=== PATIENT | male | born 1990 | race African-American/Black ===

== ENCOUNTER 2017-01-22 13:45 | Emergency (ER) | payer SELFPAY ==
[~2017-01-22] VITALS: Ht 172.7 cm; Wt 90.7 kg
--- NOTE | 2017-01-22 14:12 | ED.ADGEN ---
Past Medical History Past Medical History: No Pertinent History Alcohol Use: None Drug Use: Marijuana Adult General Chief Complaint Chief Complaint: SHORTNESS OF BREATH HPI HPI Patient is a 26 year old man, with no significant past medical history, who presents to the emergency department with complaint of worsening shortness of breath over the past month. Patient states that "I can't even sleep, it feels like I'm drowning, and it wakes meet up". He states that he was seen by another provider about a week ago, at that time he was prescribed an inhaler which he has been unable to fill due to cost concerns. He states that he is not experiencing any chest pain, does have chest tightness, and a feeling as though he cannot take a deep breath, states symptoms are worse with exertion and with lying flat. He denies any nausea or vomiting, any fevers or chills, any cough, any swelling extremities, any rashes, any travel or surgery, any history of PE or DVT in himself or family members. Has a family history of asthma. Patient states he does smoke cigarettes and marijuana. Patient is mildly tachycardic with a heart rate of 103, oxygen saturation is 9790% room air, respiratory rate is 20 and unlabored, blood pressure is 154/69. Review of Systems Review of Systems Constitutional: Denies fever or chills. [] Eyes: Denies change in visual acuity. [] HENT: Denies nasal congestion or sore throat. [] Respiratory: Denies cough, worsening shortness of breath over the past month. Cardiovascular: Chest tightness, no edema. GI: Denies abdominal pain, nausea, vomiting, bloody stools or diarrhea. [] : Denies dysuria. [] Musculoskeletal: Denies back pain or joint pain. [] Integument: Denies rash. [] Neurologic: Denies headache, focal weakness or sensory changes. [] Endocrine: Denies polyuria or polydipsia. [] Lymphatic: Denies swollen glands. [] Psychiatric: Denies depression or anxiety. [] Current Medications Current Medications Current Medications Medications (Trade) Dose Ordered Sig/Ivon Start Time Stop Time Status Last Admin Dose Admin Albuterol/ Ipratropium (Duoneb) 3 ml 1X ONCE 01/22/17 14:15 01/22/17 14:16 DC 01/22/17 14:13 3 ML Allergies Allergies Allergies Coded Allergies Type Severity Reaction Last Updated Verified No Known Drug Allergies 01/22/17 No Physical Exam Physical Exam Constitutional: Well developed, well nourished, no acute distress, non-toxic appearance. [] HENT: Normocephalic, atraumatic, bilateral external ears normal, oropharynx moist, no oral exudates, nose normal. [] Eyes: PERRLA, EOMI, conjunctiva normal, no discharge. [] Neck: Normal range of motion, no tenderness, supple, no stridor. [] Cardiovascular:Heart rate regular rhythm, no murmur, S1, S2, rubs or gallops. [] Lungs & Thorax: Bilateral breath sounds clear to auscultation, no wheezing, rhonchi, rales. No chest or crepitus or tenderness. [] Abdomen: Bowel sounds normal, soft, no tenderness, no rebound or rigidity, no guarding, no masses, no pulsatile masses. [] Skin: Warm, dry, no erythema, no rash. [] Back: No tenderness, no CVA tenderness. [] Extremities: No tenderness, no cyanosis, no clubbing, ROM intact, no edema. Negative Homans sign. Neurologic: Alert and oriented X 3, normal motor function, normal sensory function, no focal deficits noted. [] Psychologic: Affect normal, judgement normal, mood normal. [] Current Patient Data Vital Signs Vital Signs Date Time Temp Pulse Resp B/P (MAP) Pulse Ox O2 Delivery O2 Flow Rate FiO2 01/22/17 15:33 80 22 141/68 (92) 97 Room Air 01/22/17 13:58 98.5 98.5 Lab Values Laboratory Tests Test 01/22/17 14:22 01/22/17 14:43 White Blood Count 7.5 x10^3/uL (4.0-11.0) Red Blood Count 5.19 x10^6/uL (4.30-5.70) Hemoglobin 15.5 g/dL (13.0-17.5) Hematocrit 45.9 % (39.0-53.0) Mean Corpuscular Volume 88 fL (79-100) Mean Corpuscular Hemoglobin 30 pg (25-35) Mean Corpuscular Hemoglobin Concent 34 g/dL (31-37) Red Cell Distribution Width 13.0 % (11.5-14.5) Platelet Count 195 x10^3/uL (140-400) Neutrophils (%) (Auto) 70 % (31-73) Lymphocytes (%) (Auto) 21 % (24-48) L Monocytes (%) (Auto) 7 % (0-9) Eosinophils (%) (Auto) 1 % (0-3) Basophils (%) (Auto) 1 % (0-3) Neutrophils # (Auto) 5.3 x10^3uL (1.8-7.7) Lymphocytes # (Auto) 1.5 x10^3/uL (1.0-4.8) Monocytes # (Auto) 0.5 x10^3/uL (0.0-1.1) Eosinophils # (Auto) 0.1 x10^3/uL (0.0-0.7) Basophils # (Auto) 0.1 x10^3/uL (0.0-0.2) D-Dimer (Tiffany) < 0.27 ug/mlFEU Sodium Level 141 mmol/L (136-145) Potassium Level 4.4 mmol/L (3.5-5.1) Chloride Level 104 mmol/L (98-107) Carbon Dioxide Level 28 mmol/L (21-32) Anion Gap 9 (6-14) Blood Urea Nitrogen 14 mg/dL (8-26) Creatinine 0.8 mg/dL (0.7-1.3) Estimated GFR (Cockcroft-Gault) 116.0 BUN/Creatinine Ratio 18 (6-20) Glucose Level 102 mg/dL (70-99) H Calcium Level 8.5 mg/dL (8.5-10.1) Total Bilirubin 0.2 mg/dL (0.2-1.0) Aspartate Amino Transferase (AST) 21 U/L (15-37) Alanine Aminotransferase (ALT) 44 U/L (16-63) Alkaline Phosphatase 98 U/L (46-116) Troponin I Quantitative < 0.017 ng/mL (0.000-0.055) CW-Xky-Q-Type Natriuretic Peptide 22 pg/mL (0-124) Total Protein 7.6 g/dL (6.4-8.2) Albumin 3.7 g/dL (3.4-5.0) Albumin/Globulin Ratio 0.9 (1.0-1.7) L Urine Opiates Screen Neg (NEG) Urine Methadone Screen Neg (NEG) Urine Barbiturates Neg (NEG) Urine Phencyclidine Screen Neg (NEG) Urine Amphetamine/Methamphetamine Neg (NEG) Urine Benzodiazepines Screen Neg (NEG) Urine Cocaine Screen Neg (NEG) Urine Cannabinoids Screen Pos (NEG) Urine Ethyl Alcohol Neg (NEG) Laboratory Tests 01/22/17 14:22 Laboratory Tests 01/22/17 14:22 EKG EKG EC: Sinus rhythm, heart rate 91 bpm, upright axis, QTC of 420, CA of 156 , QRS of 84, no ST elevations or depressions, no evidence of acute ST abnormalities. As interpreted by me. Radiology/Procedures Radiology/Procedures [][facility] [address] [place], [place] [id number] IMAGING REPORT Signed PATIENT: RICO CHAWLA ACCOUNT: [id number] : 1990 LOCATION: ER AGE: 26 SEX: M EXAM STATUS: REG ER ORD. PHYSICIAN: DIGNA JOSHI DO REASON: SOB PROCEDURE: CHEST PA & LATERAL PA and lateral chest radiographs 01/22/2017. Clinical History: Shortness of breath. PA and lateral digital radiographs of the chest were obtained. No previous studies are available for comparison. The cardiac and mediastinal silhouettes are within normal limits in size and configuration. No pulmonary infiltrate is seen. No pleural effusion or pneumothorax is noted. The osseous structures are grossly intact. Impression: No radiographic evidence of active cardiopulmonary disease. DICTATED and SIGNED BY: MIKEY PAUL MD DATE: 01/22/17 1515 CC: DIGNA JOSHI DO; NO PCP ~ Course & Med Decision Making Course & Med Decision Making Pertinent Labs and Imaging studies reviewed. (See chart for details) Patient well-appearing, oxygen saturation at rest is 97 %, lungs are slightly diminished at bases, no other acute concerning findings identified and examination or history. ECG is also unremarkable, chest x-rays unremarkable, patient received DuoNeb in the ED, states he is feeling much better after DuoNeb administered. Other laboratory studies and evaluation not reveal a concerning findings. Patient received an ambulatory trial in the emergency department, heart rate is now in the 80s, oxygen saturation between 96-98%, respiratory rate remains unlabored. I discussed with patient that he is experiencing symptoms consistent with reactive airway disease, or asthma, and to use the albuterol inhaler as prescribed with the physician would be beneficial, as would discontinuing smoking both marijuana and cigarettes. Also discussed with the patient that he requires establishing a primary care provider for additional evaluation and follow-up if symptoms persist. We did discuss concerning symptoms that would prompt return, was discharged with a second prescription for an albuterol inhaler, with clear and detailed return instructions and precautions as stated above. Dragon Disclaimer Dragon Disclaimer This electronic medical record was generated, in whole or in part, using a voice recognition dictation system. Departure Impression: Primary Impression: Shortness of breath Additional Impressions: Asthma Marijuana abuse Disposition: 01 HOME, SELF-CARE Condition: IMPROVED Scripts Albuterol Sulfate (Ventolin Hfa) 8 Gm Hfa.aer.ad 8 GM IH PRN Q4-6HRS Y for SHORTNESS OF BREATH, #1 INHALER Prov: DIGNA JOSHI DO 01/22/17 Problem Qualifiers DIGNA JOSHI DO Jan 22, 2017 14:12
[2017-01-22] MEDS ORDERED: IPRATRPIUM/ALBUTEROL 0.5/2.5MG 3 ML NEBU. NEB ONE (14:15)
[2017-01-22 14:32] LABS: BASO # 0.1 x10^3/uL (0.0-0.2); BASO % 1 % (0-3); EOS % 1 % (0-3); HEMATOCRIT 45.9 % (39.0-53.0); HEMOGLOBIN 15.5 g/dL (13.0-17.5); LYMPH # 1.5 x10^3/uL (1.0-4.8); LYMPH % 21 % (24-48); MEAN CORPUSCULAR HEMOGLOBIN 30 pg (25-35); MEAN CORPUSCULAR HGB CONC 34 g/dL (31-37); MEAN CORPUSCULAR VOLUME 88 fL (79-100); MONO % 7 % (0-9); NEUT % 70 % (31-73); PLATELET COUNT 195 x10^3/uL (140-400); RED BLOOD COUNT 5.19 x10^6/uL (4.30-5.70); WHITE BLOOD COUNT 7.5 x10^3/uL (4.0-11.0)
[2017-01-22 14:55] LABS: CALCIUM 8.5 mg/dL (8.5-10.1); CREATININE 0.8 mg/dL (0.7-1.3); POTASSIUM 4.4 mmol/L (3.5-5.1)
[2017-01-22 14:58] LABS: ALBUMIN 3.7 g/dL (3.4-5.0); ALBUMIN/GLOBULIN RATIO 0.9 (1.0-1.7); TOTAL BILIRUBIN 0.2 mg/dL (0.2-1.0); TOTAL PROTEIN 7.6 g/dL (6.4-8.2)
--- NOTE | 2017-01-22 14:58 | EKG ---
[facility] [address] [place] [address] Test Date: 2017-01-22 Test Time: 14:09:17 Pat Name: RICO CHAWLA Department: Room: Gender: M [employer]ist: : 1990 Requested By: DIGNA JOSHI Order Number: [id number] Reading MD: Measurements Intervals [place] Rate: 91 P: 39 MD: 156 QRS: 45 QRSD: 84 T: 14 QT: 340 QTc: 420 Interpretive Statements SINUS RHYTHM RI6.01 Unconfirmed report No previous ECG available for comparison
[2017-01-22 15:01] LABS: BARBITURATES NEG (NEG); BENZODIAZEPINES NEG (NEG); CANNABINOIDS POS (NEG); COCAINE NEG (NEG); METHADONE NEG (NEG); OPIATES NEG (NEG); PHENCYCLIDINE NEG (NEG)
--- NOTE | 2017-01-22 15:18 | RAD ---
PA and lateral chest radiographs 01/22/2017. Clinical History: Shortness of breath. PA and lateral digital radiographs of the chest were obtained. No previous studies are available for comparison. The cardiac and mediastinal silhouettes are within normal limits in size and configuration. No pulmonary infiltrate is seen. No pleural effusion or pneumothorax is noted. The osseous structures are grossly intact. Impression: No radiographic evidence of active cardiopulmonary disease.
[2017-01-22 15:33] VITALS: BP 141/68
[2017-01-22] MEDS ORDERED: VENTOLIN HFA8 GM IH (15:59)
== END 2017-01-22 16:16 | disposition home or self-care (01) ==
LOC: ER 13:45
DX: J45.909 Unspecified asthma, uncomplicated (principal); R00.0 Tachycardia, unspecified; F12.10 Cannabis abuse, uncomplicated; F17.210 Nicotine dependence, cigarettes, uncomplicated
CPT/HCPCS: 36415; 71020; 80053; 80307; 83880; 84484; 85025; 85379; 93005; 94250; 94640; 99285; J7620; G0479

== ENCOUNTER 2017-01-29 21:33 | Observation (INO) | payer SELFPAY ==
[~2017-01-29] VITALS: Ht 177.8 cm; Wt 90.7 kg
[~2017-01-29 21:33] MED LIST: VENTOLIN HFA8 GM IH
[2017-01-29] MEDS ORDERED: IPRATRPIUM/ALBUTEROL 0.5/2.5MG 3 ML NEBU. NEB ONE (22:30)
[2017-01-29] MEDS ORDERED: IOHEXOL 300 MG/ML 75 ML VIAL ONE (22:58)
[2017-01-29 23:05] LABS: BASO # 0.1 x10^3/uL (0.0-0.2); BASO % 1 % (0-3); EOS % 1 % (0-3); LYMPH # 2.3 x10^3/uL (1.0-4.8); LYMPH % 25 % (24-48); MEAN CORPUSCULAR HEMOGLOBIN 30 pg (25-35); MEAN CORPUSCULAR HGB CONC 34 g/dL (31-37); MEAN CORPUSCULAR VOLUME 89 fL (79-100); MONO % 7 % (0-9); NEUT % 66 % (31-73); PLATELET COUNT 228 x10^3/uL (140-400); RED BLOOD COUNT 5.65 x10^6/uL (4.30-5.70); WHITE BLOOD COUNT 9.2 x10^3/uL (4.0-11.0)
[2017-01-29 23:23] LABS: CALCIUM 9.5 mg/dL (8.5-10.1); GFR 108.5
--- NOTE | 2017-01-29 23:57 | RAD ---
CT CHEST WITH CONTRAST, PULMONARY ANGIOGRAM History: sob,chest pain Comparison: None. Technique: Helical CT of the chest was performed after the administration of 75 cc cc of Omni 300 intravenous contrast according to PE protocol. Axial and coronal reconstructions were obtained. 3-D MIP images were constructed to better evaluate the pulmonary arteries. RS compliance statement: One or more of the following individualized dose reduction techniques were utilized for this examination: 1. Automated exposure control 2. Adjustment of the mA and/or kV according to patient size 3. Use of iterative reconstruction technique Findings: There is some respiratory motion within the upper lobes, limiting detailed evaluation. Otherwise, pulmonary arteries are opacified, without evidence of intraluminal filling defect to suggest pulmonary embolus within the main, lobar and visualized segmental arteries. Subsegmental arteries are not evaluated. Thoracic aorta is normal in caliber. Heart is normal in size without pericardial effusion. No significant mediastinal or hilar lymphadenopathy is seen. There is some respiratory motion within the lungs. Otherwise, no focal consolidation, pleural effusion or pneumothorax is seen. Central airways remain patent. Overlying soft tissues and visualized osseous structures demonstrate no acute process. Visualized upper abdomen demonstrates no acute finding. IMPRESSION: There is some respiratory motion present within the upper lungs, otherwise no CT evidence of PE or other acute cardiopulmonary process is seen. Electronically signed by: Aury Loomis MD (01/29/2017 11:54 PM) [place] [id number]
[2017-01-30] MEDS ORDERED: methylPREDNISolone SOD SUCC PF 125 MG/2 ML VIAL. IV ONE (01:00)
[2017-01-30] MEDS ORDERED: ALBUTEROL SULFATE 2.5 MG/3 ML NEBU. CONT NEB ONE (01:00)
[2017-01-30 01:30] VITALS: BP 150/91
[2017-01-30] MEDS ORDERED: ACETAMINOPHEN 325 MG TABLET. PO PRN (01:45)
[2017-01-30] MEDS ORDERED: ONDANSETRON PF 4 MG/2 ML VIAL. IV PRN (01:45)
--- NOTE | 2017-01-30 04:00 | ED.ADGEN ---
Past Medical History Past Medical History: No Pertinent History Alcohol Use: None Drug Use: Marijuana Adult General Chief Complaint Chief Complaint: SHORTNESS OF BREATH HPI HPI Patient is a 26 year old and, who presents to the emergency department with a complaint of shortness of breath. Patient has been seen and evaluated in the emergency department 2 prior occasions, with concern for reactive airway disease as the cause of his symptoms. Patient was instructed previously to follow-up with a primary care provider and to fill a an albuterol perception, but has not done so at this time. Patient states he is feeling increasingly short of breath, feeling as though he cannot take a deep breath, and feels as though "I am drowning". He states it is waking him from sleep. He denies any sick contacts or exposures, any fevers or chills, any productive cough, any weakness, numbness, tingling, chest pain, recent travel or surgery, history of DVT or PE in himself or family members. Patient is noted be tachycardic in the 1 teens to 120s with activity, oxygen saturation is 97-98% room air, patient is slightly dyspneic, with a respiratory rate in the upper 20s. Review of Systems Review of Systems Constitutional: Denies fever or chills. [] Eyes: Denies change in visual acuity. [] HENT: Denies nasal congestion or sore throat. [] Respiratory: Denies cough, complaining of shortness of breath is worsening over the past several weeks. Cardiovascular: Denies chest pain or edema. [] GI: Denies abdominal pain, nausea, vomiting, bloody stools or diarrhea. [] : Denies dysuria. [] Musculoskeletal: Denies back pain or joint pain. [] Integument: Denies rash. [] Neurologic: Denies headache, focal weakness or sensory changes. [] Endocrine: Denies polyuria or polydipsia. [] Lymphatic: Denies swollen glands. [] Psychiatric: Denies depression or anxiety. [] Current Medications Current Medications Current Medications Medications (Trade) Dose Ordered Sig/Ivon Start Time Stop Time Status Last Admin Dose Admin Albuterol Sulfate (Ventolin Neb Soln) 10 mg 1X ONCE 01/30/17 01:00 01/30/17 01:01 DC 01/30/17 02:02 10 MG Albuterol/ Ipratropium (Duoneb) 3 ml 1X ONCE 01/29/17 22:30 01/29/17 22:31 DC 01/29/17 22:28 3 ML Iohexol (Omnipaque 300 Mg/ml) 75 ml STK-MED ONCE 01/29/17 22:58 01/29/17 22:59 DC Methylprednisolone Sodium Succinate (SOLU-Medrol 125MG VIAL) 125 mg 1X ONCE 01/30/17 01:00 01/30/17 01:01 DC 01/30/17 01:01 125 MG Allergies Allergies Allergies Coded Allergies Type Severity Reaction Last Updated Verified No Known Drug Allergies 01/22/17 No Physical Exam Physical Exam Constitutional: Well developed, well nourished, appears uncomfortable, dyspneic , non-toxic appearance. [] HENT: Normocephalic, atraumatic, bilateral external ears normal, oropharynx moist, no oral exudates, nose normal. [] Eyes: PERRLA, EOMI, conjunctiva normal, no discharge. [] Neck: Normal range of motion, no tenderness, supple, no stridor. [] Cardiovascular:Heart rate regular rhythm, no murmur , S1, S2, no rubs or gallops. [] Lungs & Thorax: Patient with scattered wheezing noted throughout, no rhonchi or rales. Abdomen: Bowel sounds normal, soft, no tenderness, no rebound, no rigidity, no guarding, no masses, no pulsatile masses. [] Skin: Warm, dry, no erythema, no rash. [] Back: No tenderness, no CVA tenderness. [] Extremities: No tenderness, no cyanosis, no clubbing, ROM intact, no edema. Negative Homans sign. [] Neurologic: Alert and oriented X 3, normal motor function, normal sensory function, no focal deficits noted. [] Psychologic: Affect normal, judgement normal, mood normal. [] Current Patient Data Vital Signs Vital Signs Date Time Temp Pulse Resp B/P (MAP) Pulse Ox O2 Delivery O2 Flow Rate FiO2 01/30/17 00:27 80 27 157/74 (101) 97 Room Air 01/29/17 22:04 99.0 99.0 Lab Values Laboratory Tests Test 01/29/17 23:00 White Blood Count 9.2 x10^3/uL (4.0-11.0) Red Blood Count 5.65 x10^6/uL (4.30-5.70) Hemoglobin 17.0 g/dL (13.0-17.5) Hematocrit 50.0 % (39.0-53.0) Mean Corpuscular Volume 89 fL (79-100) Mean Corpuscular Hemoglobin 30 pg (25-35) Mean Corpuscular Hemoglobin Concent 34 g/dL (31-37) Red Cell Distribution Width 13.0 % (11.5-14.5) Platelet Count 228 x10^3/uL (140-400) Neutrophils (%) (Auto) 66 % (31-73) Lymphocytes (%) (Auto) 25 % (24-48) Monocytes (%) (Auto) 7 % (0-9) Eosinophils (%) (Auto) 1 % (0-3) Basophils (%) (Auto) 1 % (0-3) Neutrophils # (Auto) 6.0 x10^3uL (1.8-7.7) Lymphocytes # (Auto) 2.3 x10^3/uL (1.0-4.8) Monocytes # (Auto) 0.7 x10^3/uL (0.0-1.1) Eosinophils # (Auto) 0.1 x10^3/uL (0.0-0.7) Basophils # (Auto) 0.1 x10^3/uL (0.0-0.2) Sodium Level 141 mmol/L (136-145) Potassium Level 4.0 mmol/L (3.5-5.1) Chloride Level 102 mmol/L (98-107) Carbon Dioxide Level 28 mmol/L (21-32) Anion Gap 11 (6-14) Blood Urea Nitrogen 13 mg/dL (8-26) Creatinine 1.0 mg/dL (0.7-1.3) Estimated GFR (Cockcroft-Gault) 108.5 Glucose Level 113 mg/dL (70-99) H Calcium Level 9.5 mg/dL (8.5-10.1) Laboratory Tests 01/29/17 23:00 Laboratory Tests 01/29/17 23:00 EKG EKG EC: Sinus rhythm, heart rate 96 beats/minute, upright axis, QTC of 4:30, MO 132, QRS of 94, no ST elevations or depressions, mild baseline artifact noted , as interpreted by me. [] Radiology/Procedures Radiology/Procedures [][facility] [address] [place] [address] IMAGING REPORT Signed PATIENT: RICO CHAWLA ACCOUNT: [id number] : 1990 LOCATION: ER AGE: 26 SEX: M EXAM STATUS: REG ER ORD. PHYSICIAN: DIGNA JOSHI DO REASON: CP/SOB/r/o PE PROCEDURE: CT ANGIOGRAPHY CHEST CT CHEST WITH CONTRAST, PULMONARY ANGIOGRAM History: sob,chest pain Comparison: None. Technique: Helical CT of the chest was performed after the administration of 75 cc cc of Omni 300 intravenous contrast according to PE protocol. Axial and coronal reconstructions were obtained. 3-D MIP images were constructed to better evaluate the pulmonary arteries. PQRS compliance statement: One or more of the following individualized dose reduction techniques were utilized for this examination: 1. Automated exposure control 2. Adjustment of the mA and/or kV according to patient size 3. Use of iterative reconstruction technique Findings: There is some respiratory motion within the upper lobes, limiting detailed evaluation. Otherwise, pulmonary arteries are opacified, without evidence of intraluminal filling defect to suggest pulmonary embolus within the main, lobar and visualized segmental arteries. Subsegmental arteries are not evaluated. Thoracic aorta is normal in caliber. Heart is normal in size without pericardial effusion. No significant mediastinal or hilar lymphadenopathy is seen. There is some respiratory motion within the lungs. Otherwise, no focal consolidation, pleural effusion or pneumothorax is seen. Central airways remain patent. Overlying soft tissues and visualized osseous structures demonstrate no acute process. Visualized upper abdomen demonstrates no acute finding. IMPRESSION: There is some respiratory motion present within the upper lungs, otherwise no CT evidence of PE or other acute cardiopulmonary process is seen. Electronically signed by: Nadeem Loomis MD (01/29/2017 11:54 PM) [id number] DICTATED and SIGNED BY: NADEEM LOOMIS MD DATE: 01/29/17 3954 CC: DIGNA JOSHI DO; NO PCP ~ Course & Med Decision Making Course & Med Decision Making Pertinent Labs and Imaging studies reviewed. (See chart for details) Patient is previously had evaluation: Chest x-ray laboratory studies, and was read trial in the ED which was unremarkable, and has a concerning history with possibility for reactive airway disease but is persistently tachycardic and short of breath, will obtain CT of the chest to rule out any occult PE or other pathology. CT of the chest does not reveal any evidence of PE or other concerning findings. Discussed with the patient that this is third visit to the emergency department, patient has yet to follow-up in the outpatient setting, I do concerned this could be reactive airway disease, but as stated patient remains very symptomatic and tachycardic. Not hypoxic, oxygen saturation is in the upper 90s although patient is tachypnic. After discussion, patient is agreeable for admission to the hospital for further evaluation, due to his persistent vital sign abnormalities and symptoms.I did discuss findings as above and treatment in the ED with Dr. Ibanez of internal medicine, patient currently receiving an hour-long treatment with albuterol, and addition to Solu- Medrol and previous DuoNeb treatments. Patient accepted his service as an observation admission, with consultation for pulmonary critical care evaluation , bridge orders entered per discussion. Dragon Disclaimer Dragon Disclaimer This electronic medical record was generated, in whole or in part, using a voice recognition dictation system. Departure Impression: Primary Impression: Shortness of breath Additional Impression: Tachycardia Disposition: ADMITTED INPATIENT Admitting Physician: Kandi Ibanez Condition: IMPROVED Problem Qualifiers DIGNA JOSHI DO Jan 30, 2017 04:00
[2017-01-30 04:20] VITALS: BP 125/71
--- NOTE | 2017-01-30 06:16 | EKG ---
[facility] [address] [place] [address] Test Date: 2017-01-29 Test Time: 22:59:19 Pat Name: RICO CHAWLA Department: Room: Gender: M Picture Booker: : 1990 Requested By: DIGNA JOSHI Order Number: [id number] Reading MD: Measurements Intervals [place] Rate: 96 P: 53 ME: 132 QRS: 63 QRSD: 94 T: 35 QT: 340 QTc: 430 Interpretive Statements SINUS RHYTHM QRS(T) CONTOUR ABNORMALITY CONSIDER ANTEROLATERAL MYOCARDIAL DAMAGE RI6.01 Unconfirmed report No previous ECG available for comparison
[2017-01-30 07:00] VITALS: BP 138/76
[2017-01-30] MEDS: IPRATRPIUM/ALBUTEROL 0.5/2.5MG 3 ML NEBU. NEB SCH ×2 (07:32→11:46)
[2017-01-30 11:00] VITALS: BP 149/98
--- NOTE | 2017-01-30 11:37 | PDOC2 ---
AYDE BARILLAS HARDBOARD GRINDER 01/30/17 1137: CARDIAC CONSULT DATE OF CONSULT Date of Consult DATE: 01/30/17 TIME: 11:34 REASON FOR CONSULT Reason for Consult: ? CHF, SOA REFERRING PHYSICIAN Referring Physician: Dr. Stevens SOURCE Source: Chart review, Patient HISTORY OF PRESENT ILLNESS HISTORY OF PRESENT ILLNESS This is a 26 yo male, with a history of anxiety and chronic marijuana use, who presented with complaints of shortness of breath. Patient reports SOA has been ongoing for the last couple of months. Worse when he lays down. Improved with sitting up. Uses marijuana to calm himself down, but does notice some airway constriction following. Was recently prescribes Lexapro, but has not filled yet. No prior h/o CHF or cardiac disease. PAST MEDICAL HISTORY Cardiovascular: No pertinent hx Pulmonary: No pertinent hx GI: No pertinent hx Heme/Onc: No pertinent hx Hepatobiliary: No pertinent hx Psych: Anxiety Rheumatologic: No pertinent hx Infectious disease: No pertinent hx ENT: No pertinent hx Renal/: No pertinent hx Endocrine: No pertinent hx Dermatology: No pertinent hx PAST SURGICAL HISTORY Past Surgical History: No pertinent history FAMILY HISTORY Family History: Diabetes SOCIAL HISTORY Smoke: No ALCOHOL: social Drugs: Marijuana Lives: with Family CURRENT MEDICATIONS CURRENT MEDICATIONS Current Medications Medications (Trade) Dose Ordered Sig/Ivon Route PRN Reason Start Time Stop Time Status Last Admin Dose Admin Albuterol/ Ipratropium (Duoneb) 3 ml 1X ONCE NEB 01/29/17 22:30 01/29/17 22:31 DC 01/29/17 22:28 Methylprednisolone Sodium Succinate (SOLU-Medrol 125MG VIAL) 125 mg 1X ONCE IV 01/30/17 01:00 01/30/17 01:01 DC 01/30/17 01:01 Albuterol Sulfate (Ventolin Neb Soln) 10 mg 1X ONCE CONT NEB 01/30/17 01:00 01/30/17 01:01 DC 01/30/17 02:02 Acetaminophen (Tylenol) 650 mg PRN Q4HRS PRN PO FEVER 01/30/17 01:45 01/31/17 01:44 01/30/17 09:39 Albuterol/ Ipratropium (Duoneb) 3 ml RTQID NEB 01/30/17 08:00 01/31/17 07:59 01/30/17 07:32 ALLERGIES ALLERGIES: Coded Allergies: No Known Drug Allergies (Unverified , 01/22/17) ROS Review of System 14 point ROS conducted with pertinent positives noted above in HPI. PHYSICAL EXAM General: Alert, Oriented X3, Cooperative, No acute distress HEENT: Atraumatic Lungs: Clear to auscultation, Normal air movement Heart: Regular rate, Normal S1, Normal S2 Abdomen: Soft, No tenderness Extremities: No edema, Normal pulses Skin: No breakdown, No significant lesion Neuro: Normal speech, Sensation intact Psych/Mental Status: Mental status NL, Mood NL MUSCULOSKELETAL: No joint tenderness VITALS VITALS Vital Signs Date Time Temp Pulse Resp B/P (MAP) Pulse Ox O2 Delivery O2 Flow Rate FiO2 01/30/17 11:00 98.2 109 20 149/98 (115) 97 Room Air 98.2 LABS Lab: Laboratory Tests Test 01/29/17 23:00 White Blood Count 9.2 x10^3/uL (4.0-11.0) Red Blood Count 5.65 x10^6/uL (4.30-5.70) Hemoglobin 17.0 g/dL (13.0-17.5) Hematocrit 50.0 % (39.0-53.0) Mean Corpuscular Volume 89 fL (79-100) Mean Corpuscular Hemoglobin 30 pg (25-35) Mean Corpuscular Hemoglobin Concent 34 g/dL (31-37) Red Cell Distribution Width 13.0 % (11.5-14.5) Platelet Count 228 x10^3/uL (140-400) Neutrophils (%) (Auto) 66 % (31-73) Lymphocytes (%) (Auto) 25 % (24-48) Monocytes (%) (Auto) 7 % (0-9) Eosinophils (%) (Auto) 1 % (0-3) Basophils (%) (Auto) 1 % (0-3) Neutrophils # (Auto) 6.0 x10^3uL (1.8-7.7) Lymphocytes # (Auto) 2.3 x10^3/uL (1.0-4.8) Monocytes # (Auto) 0.7 x10^3/uL (0.0-1.1) Eosinophils # (Auto) 0.1 x10^3/uL (0.0-0.7) Basophils # (Auto) 0.1 x10^3/uL (0.0-0.2) Sodium Level 141 mmol/L (136-145) Potassium Level 4.0 mmol/L (3.5-5.1) Chloride Level 102 mmol/L (98-107) Carbon Dioxide Level 28 mmol/L (21-32) Anion Gap 11 (6-14) Blood Urea Nitrogen 13 mg/dL (8-26) Creatinine 1.0 mg/dL (0.7-1.3) Estimated GFR (Cockcroft-Gault) 108.5 Glucose Level 113 mg/dL (70-99) Calcium Level 9.5 mg/dL (8.5-10.1) ASSESSMENT/PLAN ASSESSMENT/PLAN 1. Dyspnea 2. Anxiety 3. Sinus tachycardia Recommendations NT Pro BNP pending. CT chest without evidence of vascular congestion; doubt acute CHF Recommend treatment of underlying anxiety Cessation of substance use Supportive care. No further cardiac workup warranted at this timing. Problems: DEEDEE FRIAS MD 01/30/17 1608: CARDIAC CONSULT ALLERGIES ALLERGIES: Coded Allergies: No Known Drug Allergies (Unverified , 01/22/17) ASSESSMENT/PLAN ASSESSMENT/PLAN Patient seen and examined. Agree with above nurse practitioner note. No further cardiac testing necessary. Suspect this is related to inflammatory issues from polysubstance abuse. Problems: AYDE BARILLAS APRN Jan 30, 2017 11:37 DEEDEE FRIAS MD Jan 30, 2017 16:08
--- NOTE | 2017-01-30 14:44 | PDOC ---
Provider Note Provider Note DICTATED SHAREE GREGG MD Jan 30, 2017 14:44
--- NOTE | 2017-01-30 15:02 | CONS ---
DATE OF CONSULTATION: 01/30/2017 ATTENDING PHYSICIAN: Dr. Stevens. REASON FOR CONSULTATION: Dyspnea. HISTORY OF PRESENT ILLNESS: The patient is a 26-year-old male who has been smoking marijuana on a daily basis since age 8. The patient has recently been frequently visiting Emergency Room Department on 2 prior occasions. He presented to the hospital with complaint of tightness in the chest, which often happens after smoking marijuana. He had some shortness of breath as well. No fever, no chills, no cough. No history of deep vein thrombosis or pulmonary embolism. He has no history of asthma. He underwent imaging study and was found to have no evidence of any pulmonary embolism and no parenchymal infiltrates were seen on the CT angiogram. He feels comfortable currently resting on room air. He was treated with nebulizer treatments and also IV steroid. PAST MEDICAL HISTORY: Significant for marijuana abuse since age 8 on a daily basis. No tobacco history. PAST SURGICAL HISTORY: None. ALLERGIES: None. MEDICATIONS: Reviewed as listed in the MRAD. REVIEW OF SYSTEMS: As listed in the history of present illness. SOCIAL HISTORY: Marijuana use on a daily basis since age 8. No tobacco history. PHYSICAL EXAMINATION: VITAL SIGNS: Stable, afebrile, pulse ox 98% on room air. NECK: Supple. LUNGS: Clear. CARDIOVASCULAR: Regular rate and rhythm. ABDOMEN: Soft. EXTREMITIES: No pitting edema. LABORATORY DATA: Reviewed, they were all within normal limits except mildly increased glucose of 113. IMPRESSION: Chest tightness secondary to ongoing marijuana use. May have a component of anxiety as well. I do not see any evidence of asthma. The CT angiogram was negative for pulmonary embolus or any parenchymal lung disease. RECOMMENDATIONS: 1. From a pulmonary standpoint, he could be discharged home. 2. I do not see a need for any inhalers. 3. The patient was extensively counseled regarding cessation of marijuana. 4. Antianxiety medication per PCP. 5. We will sign off. SHAREE GREGG MD DR: LEANNA/flash JOB#: [id number] / [id number]
--- NOTE | 2017-01-30 17:46 | HP ---
ADMIT DATE: 01/30/2017 CHIEF COMPLAINT: Shortness of breath. HISTORY OF PRESENT ILLNESS: The patient is a pleasant middle-aged healthy male who presents with shortness of breath. He thinks he may be having panic attacks, rates his symptoms at 9/10. It has been occurring several times, he has been to the hospital before for this. I discussed the case with the ER physician. We are going to admit the patient. I am going to go ahead and consult Cardiology as well to make sure he does not have any acute cardiac issues. I did call the nurse practitioner with Cardiology. PAST MEDICAL HISTORY: Panic attacks and obesity. ALLERGIES: None. FAMILY HISTORY: Hypertension. SOCIAL HISTORY: He does not drink, smoke or take drugs. He is not working currently. MEDICATIONS: Reviewed. REVIEW OF SYSTEMS: GENERAL: No history of weight change, weakness or fevers. SKIN: No bruising, hair changes or rashes. EYES: No blurred, double or loss of vision. NOSE AND THROAT: No history of nosebleeds, hoarseness or sore throat. HEART: No history of palpitations, chest pain or shortness of breath on exertion. LUNGS: He complains of shortness of breath. GASTROINTESTINAL: Denies changes in appetite, nausea, vomiting, diarrhea or constipation. GENITOURINARY: No history of frequency, urgency, hesitancy or nocturia. NEUROLOGIC: Denies history of numbness, tingling, tremor or weakness. PSYCHIATRIC: He complains of panic attacks. ENDOCRINE: No history of heat or cold intolerance, polyuria or polydipsia. EXTREMITIES: Denies muscle weakness, joint pain, pain on walking or stiffness. PHYSICAL EXAMINATION: VITAL SIGNS: Temperature afebrile, pulse 92, respirations 18, blood pressure 132/70. GENERAL: He is alert, cooperative, anxious. His girlfriend is present. HEART: Normal S1, S2. LUNGS: Mostly clear. ABDOMEN: Soft. EXTREMITIES: No edema. SKIN: No rashes. PSYCHIATRIC: He is anxious. VASCULAR: Good capillary refill. ENDOCRINE: No thyromegaly. LYMPHATICS: No cervical nodes. HEMATOPOIETIC: No bruising. LABORATORY DATA: CT of the chest was negative for PE. Laboratory was normal. ASSESSMENT AND PLAN: Subjective shortness of breath. The patient has been admitted. We will check a brain natriuretic peptide level, consult Cardiology to make sure he does not have heart failure. If that workup is negative, we suspect he probably does have panic attacks, and I will give him prescriptions for Ativan and Zoloft. COLLIN CARVALHO DO DR: MARCELA/flash JOB#: [id number] / [id number]
== END 2017-01-30 15:18 | disposition home or self-care (01) ==
LOC: ER 21:33 → 6 SOUTH 01-30 01:00 → INTOOBSV 01-30 01:00
PROVIDERS: ADMIT Internal Medicine; ATTEND Internal Medicine
DX: R06.02 Shortness of breath (principal); F41.0 Panic disorder [episodic paroxysmal anxiety]; E66.9 Obesity, unspecified; R00.0 Tachycardia, unspecified; R06.00 Dyspnea, unspecified; F41.9 Anxiety disorder, unspecified; F12.90 Cannabis use, unspecified, uncomplicated; Z83.3 Family history of diabetes mellitus; Z82.49 Family history of ischemic heart disease and other diseases of the circulatory system
CPT/HCPCS: 36415; 71275; 80048; 85025; 93005; 94250; 94640; 94644; 96374; 99285; G0378; J2930; J7613; J7620; G0379

== ENCOUNTER 2017-05-10 19:26 | Emergency (ER) | payer SELFPAY ==
[~2017-05-10] VITALS: Ht 177.8 cm; Wt 99.8 kg
[2017-05-10 19:39] VITALS: BP 135/97
[2017-05-10] MEDS ORDERED: NAPR-683 PO (20:03)
--- NOTE | 2017-05-10 20:04 | PHYS DOC ---
Past Medical History Past Medical History: No Pertinent History Past Surgical History: No Surgical History Alcohol Use: Occasionally Drug Use: Marijuana Adult General Chief Complaint Chief Complaint: Congestion HPI HPI Patient is a 26 year old male presents to the emergency department with left anterior chest wall pain. He states pain is worse with deep inspiration coughing. Reports no shortness of breath, no headache, lightheadedness, no chest pain, no abdominal pain, nausea, no vomiting. Review of Systems Review of Systems Constitutional: Denies fever or chills [] Eyes: Denies change in visual acuity, redness, or eye pain [] HENT: Denies nasal congestion or sore throat [] Respiratory: Denies cough or shortness of breath [] Cardiovascular: Chest wall pain GI: Denies abdominal pain, nausea, vomiting, bloody stools or diarrhea [] : Denies dysuria or hematuria [] Musculoskeletal: Denies back pain or joint pain [] Integument: Denies rash or skin lesions [] Neurologic: Denies headache, focal weakness or sensory changes [] Endocrine: Denies polyuria or polydipsia [] All other systems were reviewed and found to be within normal limits, except as documented in this note. Allergies Allergies Allergies Coded Allergies Type Severity Reaction Last Updated Verified No Known Drug Allergies 01/22/17 No Physical Exam Physical Exam Constitutional: Well developed, well nourished, no acute distress, non-toxic appearance. [] HENT: Normocephalic, atraumatic, bilateral external ears normal, oropharynx moist, no oral exudates, nose normal. [] Eyes: PERRLA, EOMI, conjunctiva normal, no discharge. [] Neck: Normal range of motion, no tenderness, supple, no stridor. [] Cardiovascular:Heart rate regular rhythm, no murmur, left anterior chest wall, intercostal spaces 9-11 tender to palpate. [] Lungs & Thorax: Bilateral breath sounds clear to auscultation []Symmetrical chest wall movement Abdomen: Bowel sounds normal, soft, no tenderness, no masses, no pulsatile masses. [] Skin: Warm, dry, no erythema, no rash. [] Back: No tenderness, no CVA tenderness. [] Extremities: No tenderness, no cyanosis, no clubbing, ROM intact, no edema. [] Neurologic: Alert and oriented X 3, normal motor function, normal sensory function, no focal deficits noted. [] Psychologic: Affect normal, judgement normal, mood normal. [] Current Patient Data Vital Signs Vital Signs Date Time Temp Pulse Resp B/P (MAP) Pulse Ox O2 Delivery O2 Flow Rate FiO2 05/10/17 19:39 97.9 92 18 97 Room Air 97.9 EKG EKG [] Radiology/Procedures Radiology/Procedures [] Course & Med Decision Making Course & Med Decision Making Pertinent Labs and Imaging studies reviewed. (See chart for details) [] Dragon Disclaimer Dragon Disclaimer This electronic medical record was generated, in whole or in part, using a voice recognition dictation system. Departure Departure Impression: Primary Impression: Chest wall pain Additional Impression: Marijuana abuse Disposition: HOME, SELF-CARE Condition: STABLE Referrals: NO PCP (PCP) [facility] Patient Instructions: Chest Wall Pain Scripts Naproxen (NAPROSYN) 500 Mg Tablet 500 MG PO BID Y for PAIN, #20 TAB Prov: NAE MAS APRN 05/10/17 Problem Qualifiers NAE MAS APRN May 10, 2017 20:04
== END 2017-05-10 20:12 | disposition home or self-care (01) ==
LOC: ER 19:26
DX: R07.89 Other chest pain (principal); F12.10 Cannabis abuse, uncomplicated; R05 Cough
CPT/HCPCS: 99282

== ENCOUNTER 2017-10-22 01:20 | Emergency (ER) | payer SELFPAY ==
[2017-10-22] MEDS: ACETAMINOPHEN/CODEINE 300/30MG TABLET. PO (03:44)
[2017-10-22 04:15] LABS: BILIRUBIN,URINE NEGATIVE (NEG); CLARITY,URINE CLEAR; COLOR,URINE YELLOW; GLUCOSE,URINE NEGATIVE (NEG); NITRITE,URINE NEGATIVE (NEG); PH,URINE 6.5; PROTEIN,URINE NEGATIVE (NEG-TRACE); UROBILINOGEN,URINE 0.2 mg/dL (0.2 mg/dL)
[2017-10-22 04:57] LABS: BACTERIA,URINE 0 /HPF (0-FEW); RBC,URINE OCC /HPF (0-2); SQUAMOUS EPITHELIAL CELL,UR FEW /LPF; WBC,URINE OCC /HPF (0-4)
== END 2017-10-22 05:20 | disposition home or self-care (01) ==
LOC: ER 01:20
DX: M54.5 Low back pain (principal); R10.9 Unspecified abdominal pain; R51 Headache; J45.909 Unspecified asthma, uncomplicated; Z79.891 Long term (current) use of opiate analgesic
CPT/HCPCS: 72100; 81001; 99285

== ENCOUNTER 2021-02-06 11:56 | Emergency (ER) | payer SELFPAY ==
[~2021-02-06] VITALS: Ht 177.8 cm; Wt 100.0 kg
[~2021-02-06 11:56] MED LIST changes: +NAPR-683 PO; +TRAM-48 PO
[2021-02-06 12:15] VITALS: BP 117/60
[2021-02-06] MEDS ORDERED: diphenhydrAMINE 50 MG/ML VIAL IVP ONE (12:45)
[2021-02-06] MEDS ORDERED: PROCHLORPERAZINE 10 MG/2 ML VIAL. IV ONE (12:45)
[2021-02-06] MEDS ORDERED: IV NORMAL SALINE 1000ML BAG 1,000 ML IV ONE (12:45)
--- NOTE | 2021-02-06 12:48 | PHYS DOC ---
Past Medical History Past Medical History: Asthma, Other Additional Past Medical Histor: BACK PAIN Past Surgical History: No Surgical History Smoking Status: Current Every Day Smoker Alcohol Use: None Drug Use: None General Adult EDM: Chief Complaint: NEURO SYMPTOMS/DEFICITS HPI: HPI: 30 yo AA M PMH mild asthma (no recent exacerbations) presents to the ed with his girlfriend, (patient consents to his/her/their knowledge and involvement in pts' medical care), complains of sharp, frontal nonradiating headache that has been intermittent and daily for the past year with associated blurry vision and slurred speech. Patient states he is seeing a PCP provider and is pending an outpatient CT image of his brain. Reports his headaches are so severe he can no longer drive. Denies any blunt head injury. Admits to thc use. Review of Systems: Review of Systems: Constitutional: Denies fever or chills. [] Eyes: Denies red eye or discharge HENT: Denies nasal congestion or sore throat or jaw pain Respiratory: Denies cough or shortness of breath. [] Cardiovascular: Denies chest pain or edema. [] GI: Denies abdominal pain, nausea, vomiting, bloody stools or diarrhea. [] : Denies dysuria or hematuria Musculoskeletal: Denies back pain or joint pain. [] Integument: Denies rash or diaphoresis Neurologic: Denies focal weakness or sensory changes. [] Endocrine: Denies polyuria or polydipsia. [] Lymphatic: Denies swollen glands. [] Psychiatric: Denies depression or anxiety. [] Heart Score: C/O Chest Pain: No Risk Factors: Risk Factors: DM, Current or recent (<one month) smoker, HTN, HLP, family history of CAD, obesity. Risk Scores: Score 0 - 3: 2.5% MACE over next 6 weeks - Discharge Home Score 4 - 6: 20.3% MACE over next 6 weeks - Admit for Clinical Observation Score 7 - 10: 72.7% MACE over next 6 weeks - Early Invasive Strategies Allergies: Allergies: Allergies Coded Allergies Type Severity Reaction Last Updated Verified No Known Drug Allergies 01/22/17 No Physical Exam: PE: Constitutional:no acute distress, non-toxic appearance. HENT: Normocephalic, atraumatic, Eyes: PERRLA, EOMI, conjunctiva normal, no discharge. Neck: Normal range of motion, supple, no nuchal rigidity or meningismus Cardiovascular: S1/2 present, regular rhythm Lungs & Thorax: Speaking in full sentences, bilateral equal chest rise, no tachypnea or increased work of breathing, gynecomastia present Abdomen: soft, no tenderness, Skin: Warm, dry, no erythema, no rash. [] Extremities: No tenderness, no cyanosis, no lower extremity edema Neurologic: cn 2-12 intact, Alert and oriented X 3, normal motor function, normal sensory function, no focal deficits noted. [] Psychologic: Affect normal, judgement normal, mood normal. [] Current Patient Data: Vital Signs: Vital Signs Date Time Temp Pulse Resp B/P (MAP) Pulse Ox O2 Delivery O2 Flow Rate FiO2 02/06/21 12:15 98.7 102 16 117/60 (86) 96 Room Air 98.7 EKG: EKG: [] Radiology/Procedures: Radiology/Procedures: IMAGING REPORT Signed PATIENT: RICO CHAWLA ACCOUNT: [id number] : 1990 LOCATION: ER AGE: 30 SEX: M EXAM STATUS: REG ER ORD. PHYSICIAN: ANNE-MARIE MORALES DO REASON: headache PROCEDURE: CT HEAD WO CONTRAST CT HEAD INDICATION: Reason: headache / Spl. Instructions: / History: COMPARISON: None Available. Exposure: One or more of the following individualized dose reduction techniques were utilized for this examination: 1. Automated exposure control 2. Adjust ment of the mA and/or kV according to patient size 3. Use of iterative reconstruction technique TECHNIQUE: 5 mm contiguous axial images were obtained from the skull base to the vertex in both bone and soft tissue algorithm. FINDINGS: No abnormal attenuation within the brain parenchyma. No evidence of acute intracranial hemorrhage. No extra-axial fluid collections. No mass effect or midline shift. Ventricular size is appropriate. Basal cisterns are patent. No fractures identified.Carrillo-white differentiation is preserved.Globes and orbits are within normal limits. Paranasal sinuses and mastoid air cells are clear. IMPRESSION: No acute intracranial findings. Electronically signed by: Danielito Kincaid MD (02/06/2021 1:24 PM) [id number] DICTATED and SIGNED BY: DANIELITO KINCAID MD DATE: 02/06/21 [id number] 0 IMAGING REPORT Signed PATIENT: RICO CHAWLA ACCOUNT: [id number] : 1990 LOCATION: ER AGE: 30 SEX: M EXAM STATUS: REG ER ORD. PHYSICIAN: ANNE-MARIE MORALES DO REASON: hedache, double visionh PROCEDURE: CT ANGIOGRAPHY HEAD AND NECK EXAMINATION: CTA HEAD AND NECK W/WO CONTRAST INDICATION:30 years, Male, headache, double vision. TECHNIQUE: After bolus of intravenous contrast, volumetric CT data acquisition was acquired of the head and neck. Multiplanar reconstruction images to include MIP and 3-D reconstruction images are submitted. Exposure: One or more of the following individualized dose reduction techniques were utilized for this examination: 1. Automated exposure control 2. Adjustment of the mA and/or kV according to patient size 3. Use of iterative reconstruction technique. COMPARISON: None FINDINGS: Any determination of stenosis is based on NASCET criteria. Head CTA: ICA: No stenosis, occlusion or aneurysm. MCA: No stenosis, occlusion or aneurysm. JORGE: No stenosis, occlusion or aneurysm. MOLD MAKER: No stenosis, occlusion or aneurysm. Basilar artery: No stenosis, occlusion or aneurysm. Distal vertebral arteries: No stenosis, occlusion or aneurysm. CT angiogram neck: Aortic arch: Patent Common carotid arteries: No stenosis, occlusion or dissection. Internal carotid arteries: No stenosis, occlusion or dissection. External carotid arteries: Patent Vertebral arteries: No stenosis, occlusion or dissection. Imaged lung apices are unremarkable. Soft tissues appear normal. Bones: No pathologic osseous lesions. IMPRESSION: No arterial stenosis, occlusion or aneurysm within the head or neck. Electronically signed by: Edgardo Zhu MD (02/06/2021 2:39 PM) [facility] DICTATED and SIGNED BY: EDGARDO ZHU MD DATE: 02/06/21 [id number] 0 Course & Med Decision Making: Course & Med Decision Making Pertinent Labs and Imaging studies reviewed. (See chart for details) Concern for headaches for the past year with associated blurry vision. Patient on reevaluation states his headache is resolved. CT the head without contrast and CT angio of the head and neck shows no stroke, stenosis or space-occupying lesions. Patient reports he does not know his family history, unknown if any autoimmune disorders are present. May benefit from for nonemergent outpatient MRI. Will discharge home with strict ED return precautions were given for facial droop, speech changes, arm or leg weakness, severe headache with nausea or vomiting or confusion. Encouraged urgent outpatient follow-up with PMD and neurology for definitive management. Life-threatening processes were considered but are low suspicion at this time, given history, physical exam and ED workup. Pt was educated on all prescription medications and adverse effects. All patient's questions were answered and pt was stable at time of discharge. Life/limb-threatening differential includes but is not limited to, meningitis, encephalitis, intracranial hemorrhage, obstructive hydrocephaly, CVA, carbon monoxide poisoning, cerebral or cavernous venous thrombosis, hypertensive emerge ncy, preeclampsia, giant cell arteritis, glaucoma, carotid or vertebral artery dissection, superior vena cava syndrome, infection, optic neuritis, or space- occupying lesions. I have spoken with the patient and/or caregivers. I explained the patient's con dition, diagnoses and treatment plan based on the information available to me at this time. I have answered the patient and/or caregiver's questions and addressed any concerns. The patient and/or caregivers have a good understanding of patient's diagnosis, condition and treatment plan as can be expected at this point. Vital signs have been stable. Patient's condition is stable and appropriate for discharge from the emergency department. Patient will pursue further outpatient evaluation with primary care physician or other designated or consulting physician as outlined in the discharge instructions. The patient and/or caregivers are agreeable to this plan of care and follow-up instructions have been explained in detail. The patient and/or caregivers have received these instructions in written form and have expressed an understanding of the discharge instructions. The patient and/or caregivers are aware that any significant change of condition or worsening of symptoms should prompt immediate return to this or the closest emergency department or call to 911. Jose Disclaimer: Jose Disclaimer: This electronic medical record was generated, in whole or in part, using a voice recognition dictation system. Departure Departure Impression: Primary Impression: Headache Disposition: HOME / SELF CARE / HOMELESS Condition: STABLE Referrals: NO PCP (PCP) Follow-up with your primary care physician in 24 to 48 hours OR FOLLOW UP WITH FAMILY MEDICINE: [address], [address] [place] [address] Patient Instructions: General Headache Without Cause Additional Instructions: FOLLOW UP WITH NEUROLOGY: FOR DEFINITIVE MANAGEMENT of headaches [facility] [address], [address] [place] [address] EMERGENCY DEPARTMENT GENERAL DISCHARGE INSTRUCTIONS Thank you for coming to [facility] Emergency Department (ED) today and trusting us with you care. We trust that you had a positive experience in our Emergency Department. If you wish to speak to the department management, you may call the Director at [phone]. YOUR FOLLOW UP INSTRUCTIONS ARE FOLLOWS: 1. Do you have a private Doctor? If you do not have a private doctor, please ask for a resource list of physicians or clinics that may be able to assist you with follow up care. 2. The Emergency Physicain has interpreted your x-rays. The X-Ray specialist will also review them. If there is a change in the findings, you will be notified in 48 hours when at all possible. 3. A lab test or culture has been done, your results will be reviewed and you will be notified if you need a change in treatment. ADDITIONAL INSTRUCTIONS AND INFORMATION: 1. Your care today has been supervised by a physician who is specially trained in emergency care. Many problems require more than one evaluation for a complete diagnosis and treatment. We recommend that you schedule your follow up appointment as recommended to ensure complete treatment of you illness or injury. If you are unable to obtain follow up care and continue to have a problem, or if your condition worsens, we recommend that you return to the ED. 2. We are not able to safely determine your condition over the phone nor are we able to give sound medical advice over the phone. For these safety reasons, if you call for medical advice we will ask you to come to the ED for further evaluation. 3. If you have any questions regarding these discharge instructions please call the ED at [phone]. SAFETY INFORMATION: In the interest of safety, wellness, and injury prevention; we encourage you to wear your sealbelt, if you smoke; quite smoking, and we encourage family to use a protective helmet for bicycling and other sporting events that present an increased risk for head injury. IF YOUR SYMPTOMS WORSEN OR NEW SYMPTOMS DEVELOP, OR YOU HAVE CONCERNS ABOUT YOUR CONDITION; OR IF YOUR CONDITION WORSENS WHILE YOU ARE WAITING FOR YOUR FOLLOW UP APPOINTMENT; EITHER CONTACT YOUR PRIMARY CARE DOCTOR, THE PHYSICIAN WHOSE NAME AND NUMBER YOU WERE GIVEN, OR RETURN TO THE ED IMMEDIATELY. ANNE-MARIE RAMIREZ DO Feb 06, 2021 12:48
[2021-02-06 13:09] LABS: CREATININE 0.9 mg/dL (0.7-1.3); GFR 119.1; POTASSIUM 4.5 mmol/L (3.5-5.1)
[2021-02-06 13:15] LABS: ALBUMIN 3.6 g/dL (3.4-5.0); ALBUMIN/GLOBULIN RATIO 0.8 (1.0-1.7); TOTAL BILIRUBIN 0.4 mg/dL (0.2-1.0); TOTAL PROTEIN 7.9 g/dL (6.4-8.2)
--- NOTE | 2021-02-06 13:27 | RAD ---
CT HEAD INDICATION: Reason: headache / Spl. Instructions: / History: COMPARISON: None Available. Exposure: One or more of the following individualized dose reduction techniques were utilized for thi s examination: 1. Automated exposure control 2. Adjustment of the mA and/or kV according to patient size 3. Use of iterative reconstruction technique TECHNIQUE: 5 mm contiguous axial images were obtained from the skull base to the vertex in both bone and soft tissue algorithm. FINDINGS: No abnormal attenuation within the brain parenchyma. No evidence of acute intracranial hemorrhage. No extra-axial fluid collections. No mass effect or midline shift. Ventricular size is appropriate. Basal cisterns are patent. No fractures identified.Carrillo-white differentiation is preserved.Globes and orbits are within normal l imits. Paranasal sinuses and mastoid air cells are clear. IMPRESSION: No acute intracranial findings. Electronically signed by: Danielito Kincaid MD (02/06/2021 1:24 PM) [id number]
[2021-02-06 13:35] LABS: AMPHETAMINE/METHAMPHETAMINE NEG (NEG); BARBITURATES NEG (NEG); BENZODIAZEPINES NEG (NEG); CANNABINOIDS POS (NEG); COCAINE NEG (NEG); METHADONE NEG (NEG); OPIATES NEG (NEG); PHENCYCLIDINE NEG (NEG)
[2021-02-06] MEDS ORDERED: IOHEXOL 300 MG/ML 100ML VIAL. IV ONE (13:45)
[2021-02-06 14:25] LABS: BASO % 0 % (0-3); EOS # 0.1 x10^3/uL (0.0-0.7); EOS % 3 % (0-3); HEMATOCRIT 39.9 % (39.0-53.0); HEMOGLOBIN 13.5 g/dL (13.0-17.5); LYMPH # 1.8 x10^3/uL (1.0-4.8); LYMPH % 34 % (24-48); MEAN CORPUSCULAR HEMOGLOBIN 30 pg (25-35); MEAN CORPUSCULAR HGB CONC 34 g/dL (31-37); MEAN CORPUSCULAR VOLUME 89 fL (79-100); MONO # 0.4 x10^3/uL (0.0-1.1); MONO % 8 % (0-9); NEUT % 55 % (31-73); PLATELET COUNT 179 x10^3/uL (140-400); RED BLOOD COUNT 4.49 x10^6/uL (4.30-5.70); RED CELL DISTRIBUTION WIDTH 13.3 % (11.5-14.5); WHITE BLOOD COUNT 5.4 x10^3/uL (4.0-11.0)
--- NOTE | 2021-02-06 14:41 | RAD ---
EXAMINATION: CTA HEAD AND NECK W/WO CONTRAST INDICATION:30 years, Male, headache, double vision. TECHNIQUE: After bolus of intravenous contrast, volumetric CT data acquisition was acquired of the he ad and neck. Multiplanar reconstruction images to include MIP and 3-D reconstruction images are submi tted. Exposure: One or more of the following individualized dose reduction techniques were utilized for thi s examination: 1. Automated exposure control 2. Adjustment of the mA and/or kV according to patient size 3. Use of iterative reconstruction technique. COMPARISON: None FINDINGS: Any determination of stenosis is based on NASCET criteria. Head CTA: ICA: No stenosis, occlusion or aneurysm. MCA: No stenosis, occlusion or aneurysm. JORGE: No stenosis, occlusion or aneurysm. EXAMINER OF CURRENCY: No stenosis, occlusion or aneurysm. Basilar artery: No stenosis, occlusion or aneurysm. Distal vertebral arteries: No stenosis, occlusion or aneurysm. CT angiogram neck: Aortic arch: Patent Common carotid arteries: No stenosis, occlusion or dissection. Internal carotid arteries: No stenosis, occlusion or dissection. External carotid arteries: Patent Vertebral arteries: No stenosis, occlusion or dissection. Imaged lung apices are unremarkable. Soft tissues appear normal. Bones: No pathologic osseous lesions. IMPRESSION: No arterial stenosis, occlusion or aneurysm within the head or neck. Electronically signed by: Kaylee Zhu MD (02/06/2021 2:39 PM) [facility]
== END 2021-02-06 16:00 | disposition home or self-care (01) ==
LOC: ER 12:12
DX: R51.9 Headache, unspecified (principal); H53.8 Other visual disturbances; R47.81 Slurred speech; M54.2 Cervicalgia; J45.909 Unspecified asthma, uncomplicated; F17.200 Nicotine dependence, unspecified, uncomplicated
CPT/HCPCS: 36415; 70450; 70496; 70498; 80053; 80307; 85025; 85651; 96361; 96374; 96375; 99285; G0480; J0780; J1200; J2060; J7030; Q9967